=== PATIENT | female | born 1965 | race Caucasian/White ===

== ENCOUNTER 2024-11-21 13:30 | Outpatient (CLI) | payer MEDICAID ==
[~2024-11-21 13:30] MED LIST: CYCL-1 PO; HYDR-4383 PO; IBUP-1984 PO; METH-360 PO; PHEN-786 PO
[2024-11-21] MEDS ORDERED: GADOTERATE MEGLUMINE 7.5 MMOL/15 ML VIAL IV ONE (19:11)
== END 2024-11-21 23:59 | disposition home or self-care (01) ==
LOC: MRI 13:30
PROVIDERS: ATTEND Neuromusculoskeletal Medicine & OMM
DX: I67.82 Cerebral ischemia (principal); I69.90 Unspecified sequelae of unspecified cerebrovascular disease; C50.911 Malignant neoplasm of unspecified site of right female breast
CPT/HCPCS: 70553; A9575

== ENCOUNTER 2025-04-03 11:34 | Outpatient (CLI) | payer MEDICAID ==
--- NOTE | 2025-04-03 12:55 | RADIOLOGY REPORT ---
Exam: US US NON VASCULAR Date: 04/03/2025 11:49 AM Clinical History: LEFT LEG SWELLING, POSS HEMATOMA Comparison: None Findings: Targeted sonographic evaluation of the soft tissues of the left thigh was obtained utilizing grayscal e and color Doppler imaging. 5 x 5 x 1 cm possible hematoma left thigh. IMPRESSION: 5 x 5 x 1 cm possible hematoma left thigh. END IMPRESSION:
== END 2025-04-03 23:59 | disposition home or self-care (01) ==
LOC: RAD 11:34
PROVIDERS: ATTEND Nurse Practitioner Family
DX: M79.89 Other specified soft tissue disorders (principal)
CPT/HCPCS: 76882

== ENCOUNTER 2025-05-14 05:16 | Observation (INO) | payer MEDICAID ==
[2025-05-09 13:28] LABS: MEAN PLATELET VOLUME 7.2 FL (7.4-10.4); RED CELL DISTRIBUTION WIDTH 17.2 % (11.5-14.5)
--- NOTE | 2025-05-09 13:28 | ELECTROCARDIOGRAPH REPORT ---
[facility] Test Date: 2025-05-09 Test Time: 13:26:31 Pat Name: CARIDAD RODGERS Department: [facility]-PRE-OP Patient ID: [id number] Room: Gender: F Bartenders: adilene : 1965 Requested By: JAMES HAGAN Order Number: [id number] Reading MD: Dr. ARIANA Pollack Measurements Intervals [place] Rate: 96 P: 82 NV: 157 QRS: 71 QRSD: 96 T: 62 QT: 381 QTc: 482 Interpretive Statements Sinus rhythm Electronically Signed On 05-10-2025 19:12:[address] ARIANA Pollack Please click the below link to view image of tracing.
[2025-05-09 13:39] LABS: APTT 26 SECONDS (22-32); INR 1.0 INR
[2025-05-09 13:41] LABS: CREATININE 0.77 MG/DL (0.40-0.90); TOTAL CARBON DIOXIDE 29.5 MMOL/L (24-32); eGFR 76 ML/MIN
[~2025-05-14] VITALS: Ht 160 cm; Wt 52.2 kg
[2025-05-14] VITALS (18 sets, daily range): BP systolic 101–133; BP diastolic 55–83; PULSE 64–112; RESP 14–18; TEMP 97.8–98.5; O2SAT 93–99
[~2025-05-14 05:16] MED LIST changes: +ASPI-529 PO; -CYCL-1 PO; +ESCI10TA PO; +FERR-97 PO; -HYDR-4383 PO; -IBUP-1984 PO; +LIDOcaine 1%/PF 5ML 10 MG/ML VIAL ONE; -METH-360 PO; -PHEN-786 PO; +dexamethasone sod phosphate 4mg/ml inj. ONE; +fentaNYL/PF 50MCG/1 ML 2ML syringe ONE; +glycopyrrolate 0.2mg/ml inj ONE; +midazolam 1 mg/ML 2ml injection ONE; +ondansetron/PF 4mg/2ml inj ONE; +propofol inj 20 ML IV ONE; +rocuronium 10mg/ml inj IV ONE
[2025-05-14] MEDS: ringers solution, lacted 1,000 ML IV SCH ×2 (06:06→13:19)
[2025-05-14] MEDS: ceFAZolin 2gm/dext,iso 50mL 50 ML IV ONE (06:06)
[2025-05-14] MEDS ORDERED: BUPIVAcaine 2.5mg/ml inj 50ml vial (contains preservative) ONE (06:49)
[2025-05-14] MEDS ORDERED: BUPIVACAINE liposomal/PF 13.3 MG/ML 10mL vial IM ONE (06:49)
[2025-05-14] MEDS ORDERED: methylene blue (5mg/ml) 50mg/10ml ampul IV ONE (06:49)
[2025-05-14] MEDS ORDERED: INDOCYANINE GREEN 25 MG/10 ML VIAL IV ONE (07:12)
[2025-05-14] MEDS ORDERED: midazolam 1 mg/ML 2ml injection ONE (07:30)
[2025-05-14] MEDS ORDERED: fentaNYL/PF 50MCG/1 ML 2ML syringe ONE ×2 (07:30→10:13)
[2025-05-14] MEDS ORDERED: HYDROmorphone/PF 0.2 MG/ML SYRINGE IV PRN ×2 (07:35)
[2025-05-14] MEDS ORDERED: labetalol 20mg/4ml (5mg/ml) syringe IV PRN (07:35)
[2025-05-14] MEDS ORDERED: ondansetron/PF 4mg/2ml inj IV PRN ×2 (07:35→11:45)
[2025-05-14] MEDS ORDERED: ringers solution, lacted 1,000 ML IV SCH (07:35)
[2025-05-14] MEDS ORDERED: fentaNYL/PF 50MCG/1 ML 2ML syringe IV PRN ×2 (07:35)
[2025-05-14] MEDS ORDERED: enalaprilat 1.25mg/ml 2ml vial IV PRN (07:35)
[2025-05-14] MEDS ORDERED: morphine 4 MG/ML inj SYRINge IV PRN ×2 (07:35→11:50)
[2025-05-14] MEDS ORDERED: dexamethasone sod phosphate 4mg/ml inj. ONE (08:28)
[2025-05-14] MEDS ORDERED: ROPIVAcaine 0.5% (5mg/ml) 30ml vial ONE (08:28)
[2025-05-14] MEDS ORDERED: LIDOcaine 1%/PF 5ML 10 MG/ML VIAL ONE (08:28)
[2025-05-14] MEDS ORDERED: propofol inj 20 ML IV ONE (08:28)
[2025-05-14] MEDS ORDERED: ondansetron/PF 4mg/2ml inj ONE (08:48)
[2025-05-14] MEDS ORDERED: acetaminophen 1000 MG/100ml vial IV ONE (08:48)
--- NOTE | 2025-05-14 09:23 | ANESTHESIA RECORDS ---
Nerve Block Providers to [facility] Diagnosis: Nerve Block requested by: JAMES HAGAN DO Neuraxial/Peripheral Nerve Block requested for Post-operative analgesia by Elise toscano DIAGNOSIS: Post-operative pain. (Body Area) Shoulder: [ ] Arm: [ ] Hand: [ ] Hip: [ ] Knee: [ ] Ankle: [ ] Foot: [ ] Leg: [ ] Abdomen: [ ] Other: [__Left Breast & axillary area ] Post-operative pain expected to be/is inadequately managed by oral or IV medicines. Regional anesthetic expected to facilitate rehabilitation and/or discharge from facility. Other:[ _] Procedure Performed: Other: LeftPEC I & PEC II block Time out Done?: Yes Time of Time out: 08:15 Procedure Details: PROCEDURE DETAILS: Risks, benefits and alternatives explained Informed consent obtained, and patient wishes to proceed Conscious sedation with indicated monitors Patient positioned, pertinent anatomy defined, sterile technique used Needle used: [ ] 3 1/8 inch Stimuplex Ultra 22ga [x ] 4 inch Stimuplex Ultra 20ga [ ] 6 inch Stimuplex Ultra 20ga [ ] 6 inch, Quikbloc over the needle catheter set 20ga [ ] 4 inch Quikbloc over the needle catheter set 20ga [ ]Other: [ ] Loss of twitch @ [____N/A ]mA [x ] Single Injection [ ] Catheter Ultrasound Guidance Used: [x ] Yes [ ] No Attempts:[ once ] Medicines injected: [ ]Clonidine Amt:[ ] [ ]Dexamethasone Amt:[ 3 mgs ] [x ]Ropivacaine Amt:[____0.5% 30 cc ] [ ]Bupivacaine Amt:[ ] [ ]Lidocaine Amt:[ ] [ ]Exparel 1.33%:[ ] [ ]Epinephrine Amt[ ] [ ]Other: [ ] Intermittent aspiration during local anesthetic administration No symptoms of intraneural or intravenous injection Patient tolerated procedure well Comments Left PECS I & PECS II block Procedure done under General anesthesia. Left Arm abducted and Linear probe is applied parasagitally below the Coracoid process and probe slid down and the ribs were identifies. Pectorals Major & Minor and Serratus anterior muscles were identified. Stimuplex 4 needle was used and inserted in plane and 20 cc of local anesthetic injected in plane between Serratus anterior & Pectoralis minor. 10 ccs was injected in between Pectoralis major and minor muscles. Separation of muscles in the facial planes was noted. LA[place] ROJO MD May 14, 2025 09:23
[2025-05-14] MEDS ORDERED: ePHEDrine 50MG/ML INJ. ONE (10:45)
[2025-05-14] MEDS: BUPIVAcaine/PF 2.5 mg/ml (0.25%) 30ml vial IJ ONE (10:55)
[2025-05-14] MEDS ORDERED: morphine 4 MG/ML inj SYRINge ONE (11:02)
[2025-05-14] MEDS ORDERED: magnesium hydroxide 30ml (MOM) UD suspension PO PRN (11:45)
--- NOTE | 2025-05-14 11:59 | OPERATIVE REPORT ---
Operative Report Providers to CC CC: JAMES HAGAN DO ~ Date of Procedure: May 14, 2025 Pre-Operative Diagnosis: Left breast cancer Post-Operative Diagnosis SAME as PRE-Op Procedure Performed Left breast simple mastectomy left axillary sentinel lymph node biopsy TALHA material chaser targeted excision of previously biopsy left axillary node Reading and interpretation of specimen radiograph Surgeon: Dr. James Hagan Costume Draper Katie Chopra PA-C Anesthesiologist: Edi Estrada Type of Anesthesia: General Findings: Specimen radiograph evaluation of previously biopsied axillary node, two markers identify Complications None Prosthetics\Implants used: None Estimated Blood Loss: Less than 20 mL Specimen Removed: Left breast simple mastectomy oriented with short stitch superior long suture lateral Left axillary previously biopsied lymph node Left axillary contents Description of Procedure: Michelle is a 60-year-old female who was diagnosed with advanced stage left breast cancer. She completed neoadjuvant chemotherapy. She had a previous biopsy of the left axilla where she had a positive lymph node and other clinically positive lymph nodes were noted on imaging. She was seen and evaluated in my office for surgical management and informed consent was obtained. She was seen in the past unit this morning by myself and the anesthesiologist. An IV had been placed in the SCDs to lower extremities. She had IV antibiotics hanging at the bedside were trimmed administered prior to the cut of surgery. She was taken into the OR suite and laid on the table with the arms extended. General anesthesia was administered with an LMA. A pecs one and two blocks performed by the anesthesiologist in the left side. I scanned the left axilla with the TALHA material chaser probe and a signal was detected. The patient was prepped and draped in a sterile fashion and a time-out was performed and agreed upon. A proposed incision was made across the chest from the medial border of the sternum to the anterior axillary line. The incision was made with a 15 blade in an elliptical fashion around the nipple-areolar complex. The incision was extended with the cutting on the cautery through the deep dermal layer. Cat claw retractors were placed in the superior aspect of the flap and the superior flap was created. I dissected in the subcutaneous plane down to the inferior aspect of the clavicle in the medial and lateral directions. Once the superior flap was completely dissected I turned my attention to dissecting the short inferior flap. The flap was elevated with cat claw retractors and I dissected down to the chest wall. The breast and fascia was removed from the chest wall in a superior to inferior medial and lateral directions. The specimen was removed from the cavity and oriented with short stitch superior and long suture lateral and placed in formalin off the field. The cavity was irrigated and hemostasis was achieved with Bovie electrocautery. I turned my attention to the left axillary sentinel lymph node biopsy and the previous biopsied lymph node. I made an incision just lateral to the pectoralis muscle in the axillary fascia and opened that space. I placed Cheek retractors for visualization purposes. I started medially along the chest wall and I dissected careful not to injure the long thoracic nerve for which I did not identify it. I moved my dissection superiorly just inferior to the axillary vein which was identified. There were a couple vessels in the area that were ligated and the intercostal brachial nerve. I dissected deeper into the tissue and used the TALHA material chaser probe to identify the previously biopsied lymph node. That is specimen was removed and placed in the specimen radiograph board and placed in the fact that drawn in two clips were identified. I continued my axillary dissection and posteriorly identified the thoracodorsal vein artery and nerve which were spared. The axillary contents was dissected free and placed off the field. The first specimen of the left axilla was the previously biopsied lymph node with two markers and that was placed in formalin and a 2nd specimen from the left axilla was the axillary contents. Hemostasis was achieved with Bovie electrocautery the cavity was copiously irrigated. Two drains were placed in the inferior aspect of the inferior flap laterally one for the breast in the other one for the axilla. These two SANDIP drains, seven English were secured to the skin with the 3-0 nylon suture. The left axillary drain was positio and the axillary fascia was reapproximated with 3-0 Vicryl interrupted suture. The chest wound was closed with 3-0 Vicryl interrupted sutures in the deep dermal layer along with the INSORB stapling device. The skin was closed with a Stratafix double-ended 3-0 Vicryl Monocryl suture. The skin was cleaned and the Prineo Stratafix was placed over the incision after the administration of 0.25% Marcaine. The patient tolerated the procedure well. Fluff dressings were applied to the chest wall and secured with a two 6 in Mingo wrap wrappings and a pressure dressing to the left axilla. She was taken to recovery in stable condition without complication Counts repoted as correct: Yes JAMES HAGAN DO May 14, 2025 11:59
[2025-05-14] MEDS: HYDROcodone/acetaminophen 5mg/325mg tablet PO PRN (16:02)
[2025-05-14] MEDS: ceFAZolin 2gm/dext,iso 50mL 50 ML IV SCH (16:02)
[2025-05-14] MEDS: nicotine 14mg patch - 24hr TD SCH (22:44)
[2025-05-15 02:00] VITALS: BP 117/65; PULSE 73; RESP 15; TEMP 98; O2SAT 96
[2025-05-15 06:42] VITALS: BP 129/58; PULSE 66; RESP 14; TEMP 97.7; O2SAT 97
[2025-05-15 07:28] VITALS: RESP 15; O2SAT 97
--- NOTE | 2025-05-15 09:57 | PROGRESS NOTE ---
Progress Note Dictate Providers to CC CC: JAMES HAGAN DO ~ Progress Note: Postop day # 1 Status post left breast simple mastectomy and left axillary dissection Central Line/PICC still needed: N\A Antibiotic Ordered?: Yes If Yes, Indications: Surgical prophylaxis If Yes, Anticipated Duration: Two postop doses q.8 hours MRSA Education MRSA Education Provided to pt: N/A Subjective Subjective Doing well. Requiring more pain medication but tolerable. She complains of some drainage around her SANDIP tube in the left side. She tolerated her diet this morning and is using the incentive spirometer. Objective Vitals Vital Signs Date Time Temp Pulse Resp B/P (MAP) Pulse Ox O2 Delivery O2 Flow Rate FiO2 05/15/25 07:28 15 97 Room Air 05/15/25 06:42 97.7 66 129/58 (81) 05/15/25 00:37 94 05/14/25 20:00 2.0 Objective Alert and oriented x3 no acute distress Chest wall is flat without erythema, swelling, bruising, SANDIP drain output is s erous in the posterior drain leading to the axilla and serosanguineous for the chest wall. There is some drainage around the drain site onto the skin. Extremities: No cyanosis or clubbing in the lower extremities no evidence of lymphedema in the upper extremities Coagulation Studies Laboratory Tests Test 05/09/25 13:19 Prothrombin Time 10.3 SECONDS (9.0-12.0) INR International Normalized Ratio 1.0 INR Activated Partial Thromboplast Time 26 SECONDS (22-32) Coagulation Comments Counseling Services Smoking & Tobacco Cessation: N/A Advance Care Planning Advanced Care planning: N/A Problem\Assessment\Plan Problems/Diagnosis: (1) Breast cancer, left breast Assessment & Plan: Postop day # 1 Status post left breast simple mastectomy and left axillary dissection Advanced left breast cancer status post neoadjuvant chemotherapy Patient is stable for discharge home today She has been prescribed pain medication and antibiotics at home Teach drain care, empty and record Follow up with Dr. Hagan next week for SANDIP drain removal Patient has discharge instructions at home Problem Qualifiers (1) Breast cancer, left breast: Qualified Codes: C50.912 - Malignant neoplasm of unspecified site of left female breast; Z17.0 - Estrogen receptor positive status [ER+] JAMES HAGAN DO May 15, 2025 09:57
[2025-05-15 10:00] VITALS: BP 95/57; PULSE 78; RESP 16; TEMP 97.2; O2SAT 97
--- NOTE | 2025-05-15 10:02 | DISCHARGE SUMMARY ---
Discharge Summary Providers to CC CC: JAMES HAGAN DO ~ Discharge Summary Assessment Postop day # 1 Status post left breast simple mastectomy and left axillary dissection Admission Diagnosis: Left breast cancer Hospital Course DATE OF ADMISSION: DATE OF DISCHARGE: Discharge Diagnosis\Comment: Left breast cancer Operations\Procedures: Left breast simple mastectomy and left axillary dissection Consultants: None Complications: None Condition on DC: Stable Discharge Summary: Connie is a 60-year-old female who was diagnosed with advanced left breast cancer. She is status post neoadjuvant chemotherapy. She had been seen and evaluated in my office for surgical care. She agreed to the left breast mastectomy and axillary dissection and excision of previously biopsied left axillary lymph node. Connie was taken to the OR and a pecs one and two block was administered by the anesthesiologist. The surgery was uneventful. She also had an uneventful postoperative course in the recovery room and overnight. She did complain this morning of some drainage around her left axillary and breast SANDIP drains. Her pain was moderately controlled. She ambulated and was using incentive spirometer. Michelle stable for discharge will be discharged home today she has home medications. And has a repair electric motor assembler who assist with all her care and appointments, Jasmin. She will also take care of Connie in the postoperative period. She will follow up with Dr. Hagan in the office for drain removal and wound checks. *Problems/Diagnosis: (1) Breast cancer, left breast Status: Resolved Assessment & Plan: Postop day # 1 Status post left breast simple mastectomy and left axillary dissection Advanced left breast cancer status post neoadjuvant chemotherapy Patient is stable for discharge home today She has been prescribed pain medication and antibiotics at home Teach drain care, empty and record Follow up with Dr. Hagan next week for SANDIP drain removal Patient has discharge instructions at home Total Time Spent on D/C: > 30 Minutes Counseling Services Smoking & Tobacco Cessation: N/A Problem Qualifiers (1) Breast cancer, left breast: Qualified Codes: C50.912 - Malignant neoplasm of unspecified site of left female breast; Z17.0 - Estrogen receptor positive status [ER+] JAMES HAGAN DO May 15, 2025 10:02
[2025-05-15] MEDS: HYDROcodone/acetaminophen 10/325mg tab PO ONE (11:21)
== END 2025-05-15 11:50 | disposition home or self-care (01) ==
LOC: PAS 05:16 → UNDOADMOB 11:48 → PAS IN 11:48 → SUR 3N 11:48
PROVIDERS: ADMIT Surgery; ATTEND Surgery
DX: C50.812 Malignant neoplasm of overlapping sites of left female breast (principal); D64.9 Anemia, unspecified; I10 Essential (primary) hypertension; R79.1 Abnormal coagulation profile; Z92.21 Personal history of antineoplastic chemotherapy; Z79.899 Other long term (current) drug therapy; Z98.890 Other specified postprocedural states
CPT/HCPCS: 19303; 36415; 38525; 76098; 80053; 82948; 85025; 85610; 85730; 86885; 86900; 86901; 87081; 93005; 96365; 96366; A6258; G0378; J0131; J0690; J1100; J2250; J2270; J2405; J2704; J2795; J3010; J3490; J7070; J7120; Q9968; A4215; A4615; A4618; A6253; A6449; A7000; C9250; J0666; J2710